=== PATIENT | female | born 1965 | race Caucasian/White ===

== ENCOUNTER 2023-05-26 18:11 | Emergency (ER) | payer BC ==
[~2023-05-26] VITALS: Ht 172.7 cm; Wt 78.0 kg
[2023-05-26] MEDS ORDERED: KETOROLAC TROMETHAMINE INJ 30 MG/ML VIAL ONE (18:29)
[2023-05-26] MEDS ORDERED: KETOROLAC TROMETHAMINE INJ 30 MG/ML VIAL IM ONE (18:30)
[2023-05-26] MEDS ORDERED: IBUP-1955 PO (20:08)
[2023-05-26 20:35] VITALS: BP 154/89; TEMP 98.5; O2SAT 100
== END 2023-05-26 20:36 | disposition home or self-care (01) ==
LOC: ER 19:00
DX: S92.061A Displaced intraarticular fracture of right calcaneus, initial encounter for closed fracture (principal); Z79.899 Other long term (current) drug therapy; Z60.2 Problems related to living alone; W17.89XA Other fall from one level to another, initial encounter; Y93.89 Activity, other specified; Y92.89 Other specified places as the place of occurrence of the external cause; Y99.8 Other external cause status
CPT/HCPCS: 29515; 73610; 73630; 96372; 99284; J1885